=== PATIENT | male | born 1945 | race Caucasian/White ===

== ENCOUNTER 2016-09-24 05:51 | Inpatient (IN) | payer MEDICARE ==
[2016-09-21 15:51] LABS: BLOOD UREA NITROGEN 32 mg/dL (7-18)
[2016-09-21 15:52] LABS: ASPARTATE AMINO TRANSFERASE 13 U/L (15-37)
[~2016-09-24] VITALS: Ht 175.3 cm; Wt 70.9 kg
[~2016-09-24 05:51] MED LIST: ALLO300T PO; ASPI-496 PO; ATOR10TA9 PO; HYDR25TA11 PO; HYDR50TA13 PO; HYDROMORPHONE PO; LEVO300T4 PO; MORP30TA14 PO; OXYC10TA6 PO; SENN-1 PO; SERT100T5 PO; TRAZ50TA18 PO
[2016-09-24] MEDS ORDERED: BUPIVACAINE/PF-EPI 0.5% 1:200K ONE (06:54)
[2016-09-24] MEDS ORDERED: THROMBIN 5,000 UNIT VIAL TP ONE ×2 (06:54→08:41)
[2016-09-24] MEDS ORDERED: NEOSPORIN OINT, 15GM ONE (06:54)
[2016-09-24] MEDS ORDERED: LACTATED RINGERS 1,000 ML IV SCH (06:55)
[2016-09-24 07:11] LABS: BLOOD UREA NITROGEN 44 mg/dL (7-18)
[2016-09-24 07:14] LABS: ASPARTATE AMINO TRANSFERASE 16 U/L (15-37)
[2016-09-24] MEDS ORDERED: SODIUM CHLORIDE 0.9% 1,000 ML IV SCH (07:16)
[2016-09-24 07:17] VITALS: BP 132/55
[2016-09-24] MEDS ORDERED: KETAMINE 10 MG/ML, 20ML ONE (07:26)
[2016-09-24] MEDS ORDERED: REMIFENTANIL 2 MG ONE (07:26)
[2016-09-24] MEDS ORDERED: FENTANYL PF 250 MCG/5ML ONE (07:26)
[2016-09-24] MEDS ORDERED: MIDAZOLAM 1 MG/ML, 2ML ONE (07:26)
[2016-09-24] MEDS ORDERED: CEFAZOLIN 1,000 MG ONE (07:34)
[2016-09-24] MEDS ORDERED: DEXAMETHASONE 4 MG/ML, 1ML ONE (07:34)
[2016-09-24] MEDS ORDERED: PROPOFOL 10 MG/ML, 50ML ONE (07:34)
[2016-09-24] MEDS ORDERED: PROPOFOL 10 MG/ML, 20ML ONE (07:34)
[2016-09-24] MEDS ORDERED: morphine SULFATE 10 MG/ML, 1ML IVPush PRN (08:00)
[2016-09-24] MEDS ORDERED: PROMETHAZINE 25 MG/ML, 1ML IM PRN (08:00)
[2016-09-24] MEDS ORDERED: PHARMACY MAY ADJ FOR RENAL FX MC PRN (08:00)
[2016-09-24] MEDS ORDERED: ONDANSETRON 2MG/ML, 2ML IVPush PRN (08:00)
[2016-09-24] MEDS ORDERED: DIPHENHYDRAMINE 50 MG/ML, 1ML IVPush PRN (08:00)
[2016-09-24] MEDS ORDERED: BUPIVACAINE/PF-EPI 0.5% 1:200K INFIL ONE (08:39)
[2016-09-24] MEDS: hydrOXyzine 50MG TABLET PO SCH ×2 (09:00→21:22)
[2016-09-24] MEDS: ALLOPURINOL 300 MG TABLET PO SCH (09:00)
[2016-09-24] MEDS: TRAZODONE 50MG TABLET PO SCH ×2 (09:00→21:22)
[2016-09-24] MEDS: LEVOTHYROXINE 100 MCG TABLET PO SCH (09:00)
[2016-09-24] MEDS: SERTRALINE 100MG TABLET PO SCH (09:00)
[2016-09-24] MEDS ORDERED: HYDROmorphone 1 MG/ML, 1ML ONE ×3 (09:22→11:41)
[2016-09-24] MEDS ORDERED: FENTANYL PF 100 MCG/2ML IV PRN (09:30)
[2016-09-24] MEDS ORDERED: PROMETHAZINE 25 MG/ML, 1ML IV PRN (09:30)
[2016-09-24] MEDS ORDERED: ACETAMINOPHEN 325 MG TABLET PO PRN (09:30)
[2016-09-24] MEDS ORDERED: OXYcodone 5 MG/5 ML ORAL.SOL UDC PO PRN (09:30)
[2016-09-24] MEDS ORDERED: ACETAMINOPHEN 650 MG/20.3 ML UDC ONE (11:17)
[2016-09-24] MEDS ORDERED: OXYcodone 5 MG/5 ML ORAL.SOL UDC ONE (11:18)
[2016-09-24] MEDS: HYDROmorphone 1 MG/ML, 1ML IV PRN ×6 (11:23→12:03)
[2016-09-24] MEDS ORDERED: METHOCARBAMOL 750 MG TABLET ONE (11:32)
[2016-09-24] MEDS: METHOCARBAMOL 750 MG TABLET PO PRN ×2 (11:35→20:19)
[2016-09-24] MEDS: HYDROmorphone 1 MG/ML, 1ML IVPush PRN ×5 (14:37→23:24)
[2016-09-24] MEDS: OXYcodone/APAP 5/325MG TABLET PO PRN ×2 (14:38→19:30)
[2016-09-24] MEDS: D5%-0.9% NACL+KCL 20MEQ 1,000 ML IV SCH (16:51)
[2016-09-24] MEDS: CEFAZOLIN PMX 1GM/50ML 50 ML IVPB SCH ×2 (16:52→23:29)
[2016-09-24 18:49] VITALS: BP 146/81
[2016-09-25 00:05] VITALS: BP 118/62
[2016-09-25] MEDS: OXYcodone IR 5MG TABLET PO PRN ×5 (01:50→23:26)
[2016-09-25 04:45] VITALS: BP 111/58
[2016-09-25] MEDS: HYDROmorphone 1 MG/ML, 1ML IVPush PRN ×7 (06:12→20:40)
[2016-09-25 07:11] VITALS: BP 114/60
[2016-09-25] MEDS: SERTRALINE 100MG TABLET PO SCH (07:19)
[2016-09-25] MEDS: ALLOPURINOL 300 MG TABLET PO SCH (07:19)
[2016-09-25] MEDS: hydrOXyzine 50MG TABLET PO SCH ×2 (07:19→20:01)
[2016-09-25] MEDS: LEVOTHYROXINE 100 MCG TABLET PO SCH (07:19)
[2016-09-25] MEDS: D5%-0.9% NACL+KCL 20MEQ 1,000 ML IV SCH (07:20)
[2016-09-25] MEDS: METHOCARBAMOL 750 MG TABLET PO PRN ×2 (10:09→18:08)
[2016-09-25 13:16] VITALS: BP 118/59
[2016-09-25] MEDS: TRAZODONE 50MG TABLET PO SCH (20:02)
[2016-09-25 20:38] VITALS: BP 131/68
[2016-09-26] VITALS (12 sets, daily range): BP systolic 114–167; BP diastolic 61–88
[2016-09-26] MEDS: HYDROmorphone 1 MG/ML, 1ML IVPush PRN ×8 (03:14→22:29)
[2016-09-26] MEDS: METHOCARBAMOL 750 MG TABLET PO PRN ×2 (04:59→14:12)
[2016-09-26] MEDS: OXYcodone IR 5MG TABLET PO PRN ×4 (04:59→22:28)
[2016-09-26 05:59] LABS: BLOOD UREA NITROGEN 35 mg/dL (7-18)
[2016-09-26] MEDS: ALLOPURINOL 100 MG TABLET PO SCH (08:10)
[2016-09-26] MEDS: LEVOTHYROXINE 100 MCG TABLET PO SCH (08:10)
[2016-09-26] MEDS: hydrOXyzine 50MG TABLET PO SCH ×2 (08:10→19:20)
[2016-09-26] MEDS: SERTRALINE 100MG TABLET PO SCH (08:10)
[2016-09-26 09:04] LABS: ANISOCYTOSIS 1+
[2016-09-26 09:50] LABS: HEP B SURF. AB 470.9 mIU/mL (0.0-10.0)
[2016-09-26] MEDS ORDERED: ARANESP 100 MCG/ML **ESRD SQ SCH ×2 (11:00)
[2016-09-26] MEDS ORDERED: OMNIPAQUE 350 MG/ML, 100ML BOTTLE ONE (12:54)
[2016-09-26] MEDS: TRAZODONE 50MG TABLET PO SCH (19:20)
[2016-09-27] MEDS: METHOCARBAMOL 750 MG TABLET PO PRN ×2 (01:56→21:17)
[2016-09-27] MEDS: HYDROmorphone 1 MG/ML, 1ML IVPush PRN ×2 (01:57→05:01)
[2016-09-27 02:35] VITALS: BP 116/66
[2016-09-27] MEDS: OXYcodone IR 5MG TABLET PO PRN ×3 (05:01→21:17)
[2016-09-27 06:02] LABS: ASPARTATE AMINO TRANSFERASE 24 U/L (15-37); BLOOD UREA NITROGEN 30 mg/dL (7-18)
[2016-09-27 08:15] VITALS: BP 153/74
[2016-09-27] MEDS: hydrOXyzine 50MG TABLET PO SCH ×2 (08:20→21:17)
[2016-09-27] MEDS: ALLOPURINOL 100 MG TABLET PO SCH (08:20)
[2016-09-27] MEDS: SERTRALINE 100MG TABLET PO SCH (08:21)
[2016-09-27] MEDS: LEVOTHYROXINE 100 MCG TABLET PO SCH (08:21)
[2016-09-27] MEDS: SENNA/DOCUSATE TABLET PO PRN (08:29)
[2016-09-27] MEDS: HYDROcodone/APAP 10/325 MG TABLET PO PRN ×2 (08:29→14:59)
[2016-09-27] MEDS: DOCUSATE 100 MG CAPSULE PO SCH (14:59)
[2016-09-27] MEDS: MAGNESIUM HYDROXIDE 8%, 30ML UDC PO PRN ×2 (14:59→17:26)
[2016-09-27 15:43] VITALS: BP 126/62
[2016-09-27 20:57] VITALS: BP 144/70
[2016-09-27] MEDS: BISACODYL 10 MG SUPP PR PRN (21:17)
[2016-09-28] MEDS: OXYcodone IR 5MG TABLET PO PRN ×6 (01:03→23:36)
[2016-09-28 01:16] VITALS: BP 132/69
[2016-09-28] MEDS: METHOCARBAMOL 750 MG TABLET PO PRN ×3 (05:10→23:36)
[2016-09-28 05:33] LABS: BLOOD UREA NITROGEN 45 mg/dL (7-18)
[2016-09-28] MEDS: DOCUSATE 100 MG CAPSULE PO SCH (09:00)
[2016-09-28] MEDS: hydrOXyzine 50MG TABLET PO SCH ×2 (09:10→20:44)
[2016-09-28] MEDS: LEVOTHYROXINE 100 MCG TABLET PO SCH (09:10)
[2016-09-28] MEDS: SERTRALINE 100MG TABLET PO SCH (09:10)
[2016-09-28] MEDS: ALLOPURINOL 100 MG TABLET PO SCH (09:11)
[2016-09-28] MEDS: TRAZODONE 50MG TABLET PO SCH (09:14)
[2016-09-28 09:26] VITALS: BP 127/58
[2016-09-28 18:22] VITALS: BP 146/64
[2016-09-28] MEDS: HYDROmorphone 1 MG/ML, 1ML IVPush PRN ×2 (18:31→20:44)
[2016-09-28] MEDS: SENNA/DOCUSATE TABLET PO PRN (20:44)
[2016-09-29 00:09] VITALS: BP 150/74
[2016-09-29] MEDS: HYDROmorphone 1 MG/ML, 1ML IVPush PRN (00:58)
[2016-09-29] MEDS: OXYcodone IR 5MG TABLET PO PRN ×4 (03:56→17:35)
[2016-09-29 05:42] LABS: BLOOD UREA NITROGEN 34 mg/dL (7-18)
[2016-09-29 07:42] VITALS: BP 145/67
[2016-09-29] MEDS: METHOCARBAMOL 750 MG TABLET PO PRN ×2 (08:28→17:35)
[2016-09-29] MEDS: DOCUSATE 100 MG CAPSULE PO SCH (08:30)
[2016-09-29] MEDS: hydrOXyzine 50MG TABLET PO SCH ×2 (08:30→20:56)
[2016-09-29] MEDS: LEVOTHYROXINE 100 MCG TABLET PO SCH (08:32)
[2016-09-29] MEDS: SERTRALINE 100MG TABLET PO SCH (08:32)
[2016-09-29] MEDS: ALLOPURINOL 100 MG TABLET PO SCH (08:32)
[2016-09-29] MEDS: HYDROmorphone 2MG TABLET PO PRN (11:19)
[2016-09-29 13:07] VITALS: BP 137/66
[2016-09-29 20:13] VITALS: BP 145/75
[2016-09-29] MEDS: TRAZODONE 50MG TABLET PO SCH (20:56)
[2016-09-29] MEDS: HYDROcodone/APAP 10/325 MG TABLET PO PRN (20:56)
[2016-09-29] MEDS: MAGNESIUM HYDROXIDE 8%, 30ML UDC PO PRN (21:03)
[2016-09-30] MEDS ORDERED: OXYC10TA6 PO (01:10)
[2016-09-30] MEDS ORDERED: HYDR2TAB29 PO (01:12)
[2016-09-30] MEDS ORDERED: METH750T2 PO (01:14)
[2016-09-30 03:23] VITALS: BP 138/70
[2016-09-30] MEDS: METHOCARBAMOL 750 MG TABLET PO PRN ×4 (04:33→18:08)
[2016-09-30] MEDS: OXYcodone IR 5MG TABLET PO PRN ×4 (04:33→23:13)
[2016-09-30 06:25] LABS: BLOOD UREA NITROGEN 51 mg/dL (7-18)
[2016-09-30 06:34] LABS: DIFF TOTAL CELLS COUNTED 100 CELL DIFF
[2016-09-30 06:43] LABS: VERIFY COUNTS? YES
[2016-09-30 06:44] LABS: ANISOCYTOSIS 1+
[2016-09-30 07:27] VITALS: BP 151/71
[2016-09-30] MEDS: HYDROmorphone 2MG TABLET PO PRN ×2 (07:41→14:11)
[2016-09-30] MEDS: DOCUSATE 100 MG CAPSULE PO SCH (07:41)
[2016-09-30] MEDS: hydrOXyzine 50MG TABLET PO SCH ×2 (07:41→20:51)
[2016-09-30] MEDS: LEVOTHYROXINE 100 MCG TABLET PO SCH (07:42)
[2016-09-30] MEDS: ALLOPURINOL 100 MG TABLET PO SCH (07:43)
[2016-09-30] MEDS: TRAZODONE 50MG TABLET PO SCH (07:43)
[2016-09-30] MEDS: SERTRALINE 100MG TABLET PO SCH (07:43)
[2016-09-30 14:05] VITALS: BP 147/65
[2016-09-30 19:30] VITALS: BP 153/77
[2016-10-01] MEDS: METHOCARBAMOL 750 MG TABLET PO PRN (01:26)
[2016-10-01 02:20] VITALS: BP 164/81
[2016-10-01] MEDS: HYDROmorphone 2MG TABLET PO PRN (03:50)
[2016-10-01 07:36] VITALS: BP 159/74
[2016-10-01] MEDS: SERTRALINE 100MG TABLET PO SCH (08:23)
[2016-10-01] MEDS: HYDROcodone/APAP 10/325 MG TABLET PO PRN ×2 (08:23→16:16)
[2016-10-01] MEDS: LEVOTHYROXINE 100 MCG TABLET PO SCH (08:23)
[2016-10-01] MEDS: hydrOXyzine 50MG TABLET PO SCH (08:24)
[2016-10-01] MEDS: SENNA/DOCUSATE TABLET PO PRN (08:24)
[2016-10-01] MEDS: MAGNESIUM HYDROXIDE 8%, 30ML UDC PO PRN (08:24)
[2016-10-01] MEDS: DOCUSATE 100 MG CAPSULE PO SCH (08:24)
[2016-10-01] MEDS: TRAZODONE 50MG TABLET PO SCH (08:25)
[2016-10-01] MEDS ORDERED: ALLOPURINOL 100 MG TABLET PO SCH (09:00)
[2016-10-01] MEDS: BISACODYL 10 MG SUPP PR PRN (13:45)
[2016-10-01 14:43] VITALS: BP 158/74
== END 2016-10-01 17:18 | DRG 453 ==
LOC: ORIP 05:51 → 4NOR 14:16
PROVIDERS: ADMIT Orthopaedic Surgery Orthopaedic Surgery of the Spine; ATTEND Orthopaedic Surgery Orthopaedic Surgery of the Spine
PROC: 30233N1 Transfusion of Nonautologous Red Blood Cells into Peripheral Vein, Percutaneous Approach (ICD-10-PCS; 2016-09-24)
PROC: 0SG10Z1 (ICD-10-PCS; 2016-09-24)
PROC: 0SB23ZZ Excision of Lumbar Vertebral Disc, Percutaneous Approach (ICD-10-PCS; 2016-09-24)
PROC: 0SG13A0 Fusion of 2 or more Lumbar Vertebral Joints with Interbody Fusion Device, Anterior Approach, Anterior Column, Percutaneous Approach (ICD-10-PCS; principal; 2016-09-24 07:30)
DX: M96.1 Postlaminectomy syndrome, not elsewhere classified (principal); N18.6 End stage renal disease; K66.1 Hemoperitoneum; I12.0 Hypertensive chronic kidney disease with stage 5 chronic kidney disease or end stage renal disease; E46 Unspecified protein-calorie malnutrition; M48.06 Spinal stenosis, lumbar region; M51.36 Other intervertebral disc degeneration, lumbar region; E78.5 Hyperlipidemia, unspecified; D64.9 Anemia, unspecified; E03.9 Hypothyroidism, unspecified; E87.5 Hyperkalemia; G89.4 Chronic pain syndrome; D63.1 Anemia in chronic kidney disease; N40.0 Benign prostatic hyperplasia without lower urinary tract symptoms; Y83.8 Other surgical procedures as the cause of abnormal reaction of the patient, or of later complication, without mention of misadventure at the time of the procedure; Z99.2 Dependence on renal dialysis; Z98.52 Vasectomy status; Z79.899 Other long term (current) drug therapy
CPT/HCPCS: 36415; 71020; 72100; 74177; 80053; 80069; 83735; 84100; 84443; 84550; 85025; 85610; 85730; 86704; 86706; 86850; 86900; 86923; 87340; 93005; C1713; C1767; J0690; J0882; J1100; J1170; J2250; J2704; J3010; Q9967; C1760; C1762; J2270; J3480; J7030; P9016